=== PATIENT | male | born 2000 | race African-American/Black ===

== ENCOUNTER 2025-09-20 03:49 | Emergency (ER) | payer MEDICAID ==
[~2025-09-20] VITALS: Ht 177.8 cm; Wt 68.0 kg
[2025-09-20] MEDS: PREDNISONE 20MG TABLET PO ONE (06:42)
[2025-09-20 06:49] VITALS: PULSE 62; RESP 16; O2SAT 96
[2025-09-20] MEDS: IPRATROPIUM/ALBUTEROL 0.5-3(2.5)MG/3ML NEB HHN ONE ×2 (06:49→08:05)
[2025-09-20 07:30] VITALS: TEMP 37.1
[2025-09-20] MEDS ORDERED: CETI10CA11 MT (07:34)
[2025-09-20] MEDS ORDERED: P50 MT (07:34)
[2025-09-20] MEDS ORDERED: ALBU90AE INH (07:34)
[2025-09-20 08:05] VITALS: PULSE 81; RESP 16; O2SAT 96
[2025-09-20 08:47] VITALS: BP 139/92; PULSE 87; RESP 18; O2SAT 99
== END 2025-09-20 08:48 | disposition home or self-care (01) ==
LOC: ER 03:49
DX: J45.901 Unspecified asthma with (acute) exacerbation (principal); Z79.899 Other long term (current) drug therapy
CPT/HCPCS: 71045; 94640; 99285; J7512; Z7610 ×3; 94070